=== PATIENT | female | born 2000 | race Caucasian/White ===

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

== ENCOUNTER 2021-05-25 18:07 | Emergency (ER) | payer MEDICAID ==
[~2021-05-25] VITALS: Ht 160 cm; Wt 85.5 kg
[~2021-05-25 18:07] MED LIST changes: -ONDANSETRON ODT8 MG PO
[2021-05-25] MEDS ORDERED: ONDANSETRON ODT8 MG PO (19:47)
[2021-05-25 20:09] VITALS: BP 128/75
== END 2021-05-25 20:09 | disposition home or self-care (01) ==
LOC: ED 18:07
DX: R14.0 Abdominal distension (gaseous) (principal); R19.7 Diarrhea, unspecified; R74.8 Abnormal levels of other serum enzymes; R11.2 Nausea with vomiting, unspecified; R10.32 Left lower quadrant pain; R10.13 Epigastric pain; E66.9 Obesity, unspecified; Z68.33 Body mass index [BMI] 33.0-33.9, adult
CPT/HCPCS: Q9967

== ENCOUNTER → 2021-05-25 | Outpatient (CLI) | payer MEDICAID ==
[~2021-05-25] MED LIST changes: +ONDANSETRON ODT8 MG PO
[2021-05-25 16:38] LABS: BASO # 0.03 (0.02-0.10); EOS % 2.1 % (0.1-4.0); HEMATOCRIT 45.4 % (35.0-45.0); HEMOGLOBIN 14.9 g/dL (12.0-15.0); LYMPH# 2.94 (1.20-3.40); MEAN CELL VOLUME 89 fl (78-95); MEAN CORPUSCULAR HEMOGLOBIN 29 pg (26-32); MEAN CORPUSCULAR HGB CONC 33 g/dL (33-37); MEAN PLATELET VOLUME 10.2 fl (7.4-10.4); MONO # 1.16 (0.10-0.60); NEU # 5.05 (1.40-6.50); PLATELET COUNT 276 K/mm3 (130-400); RED BLOOD COUNT 5.09 M/mm3 (4.10-5.30); RED CELL DISTRIBUTION WIDTH 12.1 % (11.5-14.5); WHITE BLOOD COUNT 9.4 K/mm3 (4.8-10.8)
[2021-05-25 16:47] LABS: ALBUMIN 4.2 g/dL (3.5-5.0); POTASSIUM 3.9 mmol/L (3.5-5.1)
[2021-05-25 16:48] LABS: CALCIUM 9.2 mg/dL (8.3-10.5)
[2021-05-25 16:49] LABS: TOTAL PROTEIN 7.5 g/dL (6.4-8.3)
[2021-05-25 16:51] LABS: TOTAL BILIRUBIN 0.3 mg/dL (0.2-1.2)
== END ==
LOC: LAB 15:58
PROVIDERS: Nurse Practitioner
DX: R11.2 Nausea with vomiting, unspecified (principal); R51.9 Headache, unspecified; M54.5 Low back pain; R19.7 Diarrhea, unspecified; R10.9 Unspecified abdominal pain

== ENCOUNTER → 2021-08-31 | Outpatient (CLI) | payer MEDICAID ==
[~2021-08-31] MED LIST changes: +ONDANSETRON ODT8 MG PO
== END ==
LOC: RAD 09:50
DX: R10.9 Unspecified abdominal pain (principal); R11.0 Nausea; R14.0 Abdominal distension (gaseous)

== ENCOUNTER 2021-09-16 11:03 | Emergency (ER) | payer MEDICAID ==
[~2021-09-16] VITALS: Ht 162.6 cm; Wt 91.8 kg
[2021-09-16 12:18] LABS: HEMATOCRIT 44.5 % (35.0-45.0); HEMOGLOBIN 14.6 g/dL (12.0-15.0); MEAN CELL VOLUME 89 fl (78-95); MEAN CORPUSCULAR HEMOGLOBIN 29 pg (26-32); MEAN CORPUSCULAR HGB CONC 33 g/dL (33-37); PLATELET COUNT 278 K/mm3 (130-400); RED BLOOD COUNT 4.99 M/mm3 (4.10-5.30); RED CELL DISTRIBUTION WIDTH 12.2 % (11.5-14.5); WHITE BLOOD COUNT 16.2 K/mm3 (4.8-10.8)
[2021-09-16 12:27] LABS: LYMPHOCYTE 21 % (20-51); MONOCYTE 9 % (1-10); NEUTROPHILS 70 % (42-75)
[2021-09-16] MEDS ORDERED: CEFDINIR300 MG PO (12:49)
[2021-09-16 13:00] VITALS: BP 122/72
== END 2021-09-16 13:00 | disposition home or self-care (01) ==
LOC: ED 11:03
PROVIDERS: Family Medicine
DX: R05.9 Cough, unspecified (principal)
CPT/HCPCS: J1885

== ENCOUNTER → 2021-10-18 | Outpatient (CLI) | payer MEDICAID ==
[~2021-10-18] MED LIST changes: +CEFDINIR300 MG PO
[2021-10-19 16:35] LABS: HEPATITIS C ANTIBODY Negative (Negative)
== END ==
LOC: LAB 18:54
PROVIDERS: Nurse Practitioner
DX: L25.2 Unspecified contact dermatitis due to dyes (principal)

== ENCOUNTER → 2024-07-30 | Outpatient (CLI) | payer OTHER | LOC: RAD 15:44 | DX: S09.90XA Unspecified injury of head, initial encounter (principal); W19.XXXA Unspecified fall, initial encounter ==